=== PATIENT | male | born 1955 | race Caucasian/White ===

== ENCOUNTER 2016-09-27 10:09 | Outpatient (CLI) | payer BC ==
[2014-11-02 11:11] VITALS: BP 126/72
[2016-09-27 11:06] LABS: eGFR (African) > 60; eGFR (Non-African) > 60
== END 2016-09-27 10:10 ==
LOC: LAB 10:09
PROVIDERS: ATTEND Family Medicine
DX: Z00.00 Encounter for general adult medical examination without abnormal findings (principal); Z12.5 Encounter for screening for malignant neoplasm of prostate
CPT/HCPCS: 36415; 80053; 80061; 84153

== ENCOUNTER 2016-10-10 14:24 | Outpatient (CLI) | payer BC ==
[2014-11-02 11:11] VITALS: BP 126/72
== END 2016-10-10 14:25 ==
LOC: CARD 14:24
PROVIDERS: ATTEND Internal Medicine Cardiovascular Disease
DX: R07.9 Chest pain, unspecified (principal)
CPT/HCPCS: 93017; 99214

== ENCOUNTER 2017-10-01 08:48 | Outpatient (CLI) | payer BC ==
[2014-11-02 11:11] VITALS: BP 126/72
[2017-10-01 09:10] LABS: BASOPHILS % 0.7 (0.0-1.5); EOSINOPHILS % 4.6 % (0.0-6.8); MEAN CORPUSCULAR HEMOGLOBIN 30.7 pg (28.0-34.0); MEAN CORPUSCULAR VOLUME 88.2 fl (80.0-100.0); MONOCYTES % 5.7 % (0.0-11.0); NEUTROPHILS # 3.3 # k/uL (1.4-7.7)
--- NOTE | 2017-10-01 09:25 | Diagnostic Imaging Report ---
NATACHA RUBIO [facility] [address] [facility] [address] [place], [place]. [address] Report Submission Date: Oct 01, 2017 9:16:03 AM CDT Patient Study Name: DANA QUINTERO Date: Oct 01, 2017 8:54:57 AM CDT Modality Type: DX Gender: M Description: CHEST : 57 Institution: [facility] Physician: NATACHA RUBIO Examination: PA and lateral chest. History: Evaluate lung doe. PT STATES LT SIDED CHEST PAIN X 3 MONTHS, NONSMOKER (Hx) Comparison exam: None provided. Findings: PA lateral chest demonstrate a normal cardiac and mediastinal silhouette. No focal infiltrate. Linear scarring left lung base. No blunting of the costophrenic margins. Osseous structures are appropriate for age. Impression: Left lung base parenchymal scarring. No acute appearing pulmonary process. Electronically signed on Oct 01, 2017 9:16:03 AM CDT by: Camilo HUIZAR
[2017-10-01 09:37] LABS: eGFR (African) > 60; eGFR (Non-African) > 60
== END 2017-10-01 08:50 ==
LOC: LAB 08:48
PROVIDERS: ATTEND Family Medicine
DX: Z00.00 Encounter for general adult medical examination without abnormal findings (principal); R07.9 Chest pain, unspecified
CPT/HCPCS: 36415; 71046; 80053; 80061; 85025

== ENCOUNTER 2018-10-02 09:12 | Outpatient (CLI) | payer BC ==
[2014-11-02 11:11] VITALS: BP 126/72
[2018-10-02 09:42] LABS: BASOPHILS % 0.6 (0.0-1.5); EOSINOPHILS % 3.8 % (0.0-6.8); MEAN CORPUSCULAR HEMOGLOBIN 30.5 pg (28.0-34.0); MONOCYTES % 6.5 % (0.0-11.0); NEUTROPHILS # 3.4 # k/uL (1.4-7.7)
[2018-10-02 10:18] LABS: eGFR (Non-African) > 60
== END 2018-10-02 09:15 ==
LOC: LAB 09:12
PROVIDERS: ATTEND Family Medicine
DX: Z00.00 Encounter for general adult medical examination without abnormal findings (principal); R68.82 Decreased libido
CPT/HCPCS: 36415; 80053; 80061; 84402; 85025; G0103